=== PATIENT | male | born 1970 | race Two or more races ===

== ENCOUNTER 2022-09-10 17:01 | Emergency (ER) | payer OTHER ==
[~2022-09-10] VITALS: Ht 172.7 cm; Wt 69.9 kg
[2022-09-10 17:43] VITALS: BP_SYST 122
--- NOTE | 2022-09-10 17:49 | NUR ---
Patient triaged and placed in waiting room. VSS and patient appears in no acute distress at this time. Accompanied by FAMILY, awaiting available bed, and MD notified of need for MSE.
--- NOTE | 2022-09-10 17:55 | NUR ---
Pt bib from MD office. CC seizure duration one minute. Pt notes 3 seizures today history of seizures for past 2 years.
[2022-09-10] MEDS ORDERED: levETIRAcetam 1,000 MG IV BAG 100 ML IV ONE (18:30)
[2022-09-10 19:09] LABS: BASOPHILS # (AUTO) 0.1 K/uL (0.0-0.2); BASOPHILS % (AUTO) 0.6 % (0.0-2.0); EOSINOPHILS # (AUTO) 0.1 K/uL (0.0-0.4); EOSINOPHILS % (AUTO) 0.9 % (0.0-4.0); HEMATOCRIT 41.8 % (36-54); HEMOGLOBIN 14.1 g/dL (14.0-18.0); LYMPHOCYTES # (AUTO) 1.8 K/uL (1.0-5.5); LYMPHOCYTES % (AUTO) 18.4 % (20.5-51.5); MEAN CORPUSCULAR HEMOGLOBIN 32 pg (27-31); MEAN CORPUSCULAR HGB CONC 34 % (32-36); MEAN CORPUSCULAR VOLUME 95 fL (79.0-98.0); MONOCYTES # (AUTO) 0.5 K/uL (0.0-1.0); MONOCYTES % (AUTO) 5.5 % (1.7-9.3); NEUTROPHILS # (AUTO) 7.1 K/uL (1.8-7.7); NEUTROPHILS % (AUTO) 74.6 % (40.0-70.0); PLATELET COUNT (AUTO) 219 K/uL (130-430); RED CELL DISTRIBUTION WIDTH 13.5 % (9.0-15.0); WHITE BLOOD COUNT (AUTO) 9.5 K/uL (4.8-10.8)
--- NOTE | 2022-09-10 19:09 | NUR ---
# 20 gauge angiocath placed to rac. Use of asceptic technique. Opsite placed over site. Blood return noted. Blood for lab drawn from site. Flushed with 10 cc of normal saline. No evidence of infiltration noted. Patient tolerated well.
[2022-09-10 19:17] LABS: CREATININE 0.72 mg/dL (0.55-1.30)
--- NOTE | 2022-09-10 19:17 | NUR ---
Report given to Liz.
--- NOTE | 2022-09-10 19:27 | NUR ---
ASSUME CARE OF THIS PATIENT AAOX4, NO SOB NOTED AND NAD AT THIS TIME. PT DENIES ACHE AND DIZZINESS, DENIES BLURRY VISION. PER AT BEDSIDE PT SE STARTED TWO YEARS AGO PER IT WAS SUDDEN ONSET. DENIES BRAIN INJURY/NUERO PROBLEMS FROM THE PAST. PT ATTACHED TO MONITORS. MEDICATED PER EMAR. SEIZURE PRECAUTION INITIATED.
[2022-09-10 19:33] LABS: ALBUMIN 3.8 g/dL (3.4-4.8); TOTAL BILIRUBIN 0.1 mg/dL (0.0-1.0)
[2022-09-10 19:42] LABS: CALCIUM 8.9 mg/dL (8.4-11.0)
[2022-09-10 20:16] LABS: BILIRUBIN,URINE NEGATIVE (NEGATIVE); BLOOD, URINE NEGATIVE (NEGATIVE); CLARITY/URINE CLEAR (CLEAR); COLOR,URINE YELLOW (YELLOW); GLUCOSE,URINE NEGATIVE (NEGATIVE); KETONES,URINE NEGATIVE (NEGATIVE); LEUKOCYTE ESTERASE ,URINE NEGATIVE (NEGATIVE); NITRITE, URINE NEGATIVE (NEGATIVE); PH,URINE 7.5 (5.0-8.0); PROTEIN URINE NEGATIVE (NEGATIVE)
[2022-09-10 21:12] VITALS: BP_SYST 112
--- NOTE | 2022-09-10 21:39 | NUR ---
DC PT GHOME ACCOMPANIED BY HIS . DC INSTRUCTION WERE GIVEN TO PT AND TO HIS . ALSO INSTRUCTED TO F/U WITH HIS PCP. BOTH VERBALIZED UNDERSTANDING
== END 2022-09-10 21:38 | disposition home or self-care (01) ==
LOC: SED 17:01
DX: G40.909 Epilepsy, unspecified, not intractable, without status epilepticus (principal); Z79.899 Other long term (current) drug therapy
CPT/HCPCS: 99284; 96365; 70450; 80053; 82962; 85025; 36415; 76376; 83605; 81003; J1953